=== PATIENT | female | born 1970 | race Caucasian/White ===

== ENCOUNTER 2018-02-11 06:04 | Emergency (ER) | payer SELFPAY ==
[2018-02-11 06:05] VITALS: BP 169/105; PULSE 71; RESP 16; TEMP 37.2; O2SAT 96; BMI 23.2
[2018-02-11 06:36] LABS: Bedside Glucose 314 mg/dL (70-110)
[2018-02-11] MEDS: 0.9% Normal Saline 1,000 ML 999 ML IV (06:44)
[2018-02-11 06:50] LABS: Absolute Lymphocyte Count 2.55 X10^3/ul (0.83-4.51); Absolute Neutrophil Count 4.5 X10^3/uL (2.0-7.7); Basophil# 0.11 X10^3/uL; Basophil% 1.3 % (0-1); Eosinophil# 0.28 X10^3/uL; Eosinophils% 3.4 % (0-5); Hematocrit 36.3 % (37-47); Hemoglobin 12.2 g/dl (12.0-15.0); Lymphocyte # 2.55 X10^3/ul (4.0); Lymphocyte % 30.7 % (19-41); Mean Corp Hgb Conc 33.6 g/gl (32-36); Mean Corpuscular Hgb 27.3 pg (27.0-32.0); Mean Corpuscular Volume 81.2 fL (81-99); Mean Platelet Vol. 10.9 fl (6.2-12.0); Monocyte% 10.8 % (0-10); Neutrophil # 4.45 X10^3/uL (2.7-7.7); Neutrophil % 53.7 % (47-70); Platelet Count 244 K/mm3 (150-450); RBC Distribution Width CV 12.3 % (11.6-14.6); RBC Distribution Width SD 35.6 fl (35.1-43.9); Red Blood Count 4.47 M/mm3 (4.2-5.4); White Blood Count 8.3 K/mm3 (4.4-11.0)
[2018-02-11 06:51] LABS: POSITIVE COUNT NO; POSITIVE DIFFERENTIAL NO; POSITIVE MORPHOLOGY NO
[2018-02-11 06:58] LABS: Anion Gap 8 (5-15); BUN 11 mg/dL (7-18); BUN/Creat Ratio 18.4 RATIO (10-20); Calcium,Total 8.3 mg/dL (8.5-10.1); Chloride 103 mmol/L (98-107); EST Glomerular Filtration Rate 114 mL/min (>60); Est Glom Filt Rate - Afr Amer 138 mL/min (>60); Estimated Creatinine Clearance 90.69 ml/min; Glucose 327 mg/dL (74-106); Potassium 3.6 mmol/L (3.5-5.1); Sodium Level 137 mmol/L (136-145)
--- NOTE | 2018-02-11 07:25 | ED.VISSUMM ---
- ER Visit Summary Date of Service: 02/11/18 Chief Complaint: Blurred vision, high blood sugar History of Present Illness: The patient is a 48 F who presents with high blood sugar. She notes that she has had blurred vision for about 2 weeks. She was seeing an eye doctor for possible glasses. However in the last couple of days she is also developed polydipsia polyuria and increased fatigue. She notes that she has been having vaginal irritation. She bought a glucometer and checked her blood sugar last night. At about midnight it read high. She went to sleep and checked it a few hours later and it read 540 so she presented here. She is not a known diabetic. Physical Examination: Afebrile vitals notable for blood pressure 169/105 otherwise unremarkable Moist mucous membranes Heart regular rate and rhythm Lungs clear Abdomen soft nontender Alert Test Results: Labs notable for glucose 327. Renal function normal. Emergency Department Course and Treatment: Patient was treated with IV fluids. Repeat blood sugar 269. I do not believe the patient requires hospitalization. We will start her on metformin. She does not have a primary care physician. Dr. Payne is next on the no doc PCP referral list. I did speak to Dr. payne who will see the patient in follow-up and was in agreement with the plan. Patient discharged. Treatment Plan: [] Disposition: Discharge Impression: New onset diabetes mellitus This note was generated with [employer] dictation software. It may contain incorrect words, spelling, and punctuation that were not noted in review of the chart prior to signing ED Disposition - Plan for ED Patient: Chief Complaint: Hyperglycemia Referrals: Care Physician,No Primary [Primary Care Provider] -
--- NOTE | 2018-02-11 07:28 | ED.DEP ---
ED Disposition - Plan for ED Patient: Chief Complaint: Hyperglycemia Instructions: ED Hyperglycemia Diabetic Prescriptions: Metformin HCl [Glucophage] 500 mg PO BID #60 tab Referrals: Care Physician,No Primary [Primary Care Provider] - Gracie Abraham DO [NON-STAFF] -
[2018-02-11 07:30] LABS: Bedside Glucose 269 mg/dL (70-110)
[2018-02-11 07:50] LABS: Hemoglobin A1c 9.9 % (4.2-6.3)
[2018-02-11 08:15] VITALS: BP 158/72; PULSE 83; RESP 16; O2SAT 98
--- OUTSIDE RECORDS SUMMARY | 2018-05-16 12:56 | XMS RPT_ITS ---
:1970 Author Organization [facility] Care Team Providers Name Role Phone Ella Serrato Attending Unavailable Ella Serrato Consulting Unavailable Primay Care Physicia, No Primary Care Unavailable Henry Le Attending Unavailable Purpose Purpose PROBLEMS PROBLEMS No Problem Records FoundPROCEDURES PROCEDURES No Procedure Records FoundVITAL SIGNS VITAL SIGNS No Vital Signs Records FoundRESULTS RESULTS DISCHARGE INSTRUCTION Observed: 02/11/2018 Status: F Source: [facility] 7:29 AM [facility] REPOSITORY [facility] Medical Records Department [address] [place] [address] Discharge Instruction 02/11/18 0728 MR#: [id number] Acct: [id number] Name: RYANN WAITE Rep #: [id number] : 1970 48 From: Henry Le MD PCP: Toshia Physician, No Primary Status: REG ER ED Disposition - Plan for ED Patient: Chief Complaint: Hyperglycemia Instructions: ED Hyperglycemia Diabetic Prescriptions: Metformin HCl [Glucophage] 500 mg PO BID #60 tab Referrals: Care Physician,No Primary [Primary Care Provider] - Fast,Gracie, DO [NON-STAFF] - What to do if you have Problems For any increased pain, shortness of breath, bleeding, nausea or vomiting, chest pain, or any unexpected problems, contact your Primary Care Provider. Call [facility] ([phone]) or report to the closest Emergency Room. Call 911 if necessary. 02/11/18 0729 <Electronically signed by Henry Le MD> Date Henry Le MD Cosigner Signature (If Indicated): Date CC: No Primary Care Physician EMERGENCY DEPARTMENT Observed: 02/11/2018 Status: F Source: [facility] SUMMARY 7:28 AM [facility] Medical Records Department [address] [place] [address] Emergency Department Summary 02/11/18 0725 MR#: [id number] Acct: [id number] Name: RYANN WAITE Rep #: [id number] : 1970 48 From: Henry Le MD PCP: Care Physician, No Primary Status: REG ER - ER Visit Summary Date of Service: 02/11/18 Chief Complaint: Blurred vision, high blood sugar History of Present Illness: The patient is a 48 F who presents with high blood sugar. She notes that she has had blurred vision for about 2 weeks. She was seeing an eye doctor for possible glasses. However in the last couple of days she is also developed polydipsia polyuria and increased fatigue. She notes that she has been having vaginal irritation. She bought a glucometer and checked her blood sugar last night. At about midnight it read high. She went to sleep and checked it a few hours later and it read 540 so she presented here. She is not a known diabetic. Physical Examination: Afebrile vitals notable for blood pressure 169/105 otherwise unremarkable Moist mucous membranes Heart regular rate and rhythm Lungs clear Abdomen soft nontender Alert Test Results: Labs notable for glucose 327. Renal function normal. Emergency Department Course and Treatment: Patient was treated with IV fluids. Repeat blood sugar 269. I do not believe the patient requires hospitalization. We will start her on metformin. She does not have a primary care physician. Dr. Payne is next on the [facility] PCP referral list. I did speak to Dr. payne who will see the patient in follow-up and was in agreement with the plan. Patient discharged. Treatment Plan: [] Disposition: Discharge Impression: New onset diabetes mellitus This note was generated with [employer] software. It may contain incorrect words, spelling, and punctuation that were not noted in review of the chart prior to signing ED Disposition - Plan for ED Patient: Chief Complaint: Hyperglycemia Referrals: Care Physician,No Primary [Primary Care Provider] - What to do if you have Problems For any increased pain, shortness of breath, bleeding, nausea or vomiting, chest pain, or any unexpected problems, contact your Primary Care Provider. Call [facility] ([phone]) or report to the closest Emergency Room. Call 911 if necessary. 02/11/18 0728 <Electronically signed by Henry Le MD> Date Henry Le MD Cosigner Signature (If Indicated): Date CC: No Primary Care Physician BEDSIDE GLUCOSE Collected: 02/11/2018 Status: F Source: [facility] 7:26 AM [facility] REPOSITORY TYPE CODE TESTS RESULT OUT OF REFERENCE UNITS RANGE LAB L501.080 70-110 mg/dL High BEDSIDE GLU 269 Result Comment: MANAGEMENT OF PATIENT CARE PER NURSING PROTOCOL Performed By: #### L501.080 #### [facility] Point of Care [address] [place] [address] [id number] CBC W/DIFF, AUTOMATED Collected: 02/11/2018 Status: F Source: [facility] 6:26 AM [facility] REPOS[facility] TYPE CODE TESTS RESULT OUT OF RANGE REFERENCE UNITS LAB L100.1000 4.4-11.0 K/mm3 Normal WBC 8.3 LAB L100.1200 4.2-5.4 M/mm3 Normal RBC 4.47 LAB L100.1300 12.0-15.0 g/dl Normal HGB 12.2 LAB L100.1400 37-47 % Low HCT 36.3 LAB L100.1500 81-99 fL Normal MCV 81.2 LAB L100.1600 27.0-32.0 pg Normal MCH 27.3 LAB L100.1700 32-36 g/gl Normal MCHC 33.6 LAB L100.1810 11.6-14.6 % Normal RDW CV 12.3 LAB L100.1820 35.1-43.9 fl Normal RDW SD 35.6 LAB L100.1900 150-450 K/mm3 Normal PLT 244 LAB L100.2000 6.2-12.0 fl Normal MPV 10.9 LAB L100.2100 47-70 % Normal NEUT% 53.7 LAB L100.2200 19-41 % Normal LY% 30.7 LAB L100.2300 0-10 % High MONO% 10.8 LAB L100.2400 0-5 % Normal EO% 3.4 LAB L100.2500 0-1 % High BASO% 1.3 LAB L100.2550 0.0-0.9 % Normal IM GRAN % 0.100 Result Comment: IG% - Immature Granulocytes (promyelocytes, myelocytes and metamyelocytes) > 1% indicates that a LEFT SHIFT is Present. LAB L100.2620 2.0-7.7 X10 3/uL Normal Absolute Neut 4.5 LAB L100.2720 0.83-4.51 X10 3/ul Normal Absolute Lymph 2.55 Performed By: #### L100.0100 #### [facility] [address] [place], [place], [address] BASIC METABOLIC Collected: 02/11/2018 Status: F Source: [facility] PROFILE ([facility]) 6:26 AM [facility] REPOS[facility] TYPE CODE TESTS RESULT OUT OF RANGE REFERENCE UNITS LAB L501.0100 74-106 mg/dL High GLU 327 Result Comment: Glucose result greater than or equal to 200 mg/dL suggests DIABETES MELLITUS per A.D.A. criteria. Please note revised GLUCOSE reference range effective 2017. LAB L501.1000 7-18 mg/dL Normal BUN 11 LAB L501.1100 0.55-1.02 mg/dL Normal CREAT,SERUM 0.60 Result Comment: The validity of the calculated GFR AND GFRAA in patients over 70 years has not been determined. Clinical correlation is essential. LAB L501.1110 >60 mL/min Normal EST GFR 114 Result Comment: Non- GFR Calc LAB L501.1115 >60 mL/min Normal EST GFR - AA 138 Result Comment: GFR Calc LAB L501.1255 ml/min Normal Estimated CRCL 90.69 LAB L501.1300 10-20 RATIO Normal BUN/CRE 18.4 LAB L501.2200 8.5-10 mg/dL Low .1 CA 8.3 LAB L501.5300 136-14 mmol/L Normal 5 NA 137 LAB L501.5600 3.5-5. mmol/L Normal 1 K 3.6 LAB L501.5900 98-107 mmol/L Normal CL 103 LAB L501.6100 21.0-3 mmol/L Normal 2.0 CO2 26.0 LAB L501.6200 5-15 Normal GAP 8 Performed By: #### L500.2500 #### [facility] [address] [place], [address] HEMOGLOBIN A1C Collected: 02/11/2018 Status: F Source: [facility] 6:26 AM [facility] REPOS[facility] TYPE CODE TESTS RESULT OUT OF RANGE REFERENCE UNITS LAB L501.9985 4.2-6.3 % High HGB A1C 9.9 Performed By: #### L501.9985 #### [facility] [address] [place], [address] BEDSIDE GLUCOSE Collected: 02/11/2018 Status: F Source: [facility] 6:20 AM [facility] REPOS[facility] TYPE CODE TESTS RESULT OUT OF REFERENCE UNITS RANGE LAB L501.080 70-110 mg/dL High BEDSIDE GLU 314 Result Comment: MANAGEMENT OF PATIENT CARE PER NURSING PROTOCOL Performed By: #### L501.080 #### [facility] Point of Care [address] [place] [address] ALLERGIES ALLERGIES DATE TYPE / CODE NAME / CODE REACTION SEVERITY SOURCE 02/11/2018 Drug adhesive Other Unknown [facility] Allergy/416 tape/[id number] [facility] 404637(SNOM (RXNORM) Repository ED CT) ENCOUNTERS ENCOUNTERS ADMIT/DISCHARGE ACCOUNT ADMITTING ENCOUNTER LOCATION SOURCE NUMBER CLASS 03/13/2018 [id number] Ambulatory Building:[facility] [place] Practices Repository 02/11/2018/ [id number] Emergency [facility] [address] [facility] ing:ED Repository FUNCTIONAL STATUS FUNCTIONAL STATUS No Functional Status Records FoundEQUIPMENT EQUIPMENT No Equipment Records FoundPAYERS PAYERS ENCOUNTER GUARANTOR PAYER SUBSCRIBER SOURCE 02/11/2018 RYANN Nidia Primary NOT GIVENUNK Arlene [id number] Insurance:SELF PAY Community [address] [place] [address] [id number]: [phone] Number: Effective Repository [phone] () Date:2018-02-11 SOCIAL HISTORY SOCIAL HISTORY No Social History Records FoundFAMILY HISTORY FAMILY HISTORY No Family History Records FoundADVANCE DIRECTIVES ADVANCE DIRECTIVES No Advanced Directives Records FoundINFORMATION SOURCE INFORMATION SOURCE DATE CREATED AUTHOR AUTHOR'S ORGANIZATION 03/21/2018 [facility]
== END 2018-02-11 08:17 | disposition home or self-care (01) ==
LOC: ED 06:35
PROVIDERS: Emergency Provider Emergency Medicine
DX: E11.9 Type 2 diabetes mellitus without complications (principal); N89.8 Other specified noninflammatory disorders of vagina
CPT/HCPCS: 80048; 82962; 83036; 85025; 96360; 99284; J7030; A4216

== ENCOUNTER → 2018-06-12 12:46 | Outpatient (CLI) | payer OTHER, SELFPAY ==
--- NOTE | 2018-06-12 12:55 | CT_ITS ---
STUDY: CT ABDOMEN AND PELVIS WITH CONTRAST REASON FOR EXAM: Female, 48 years old. RLQ PAIN. RADIATION DOSAGE (If Supplied By Facility): CTDIvol = ( 10.58 ) mGy, DLP = ( 430.56 ) mGycm TECHNIQUE: Transaxial images were obtained from the dome of the diaphragm to the symphysis pubis with oral contrast. 100 IV/Oral Isovue 300 was administered. Sagittal and coronal images were reconstructed. Individualized dose optimization techniques were used for this CT. COMPARISON: None. FINDINGS: The visualized lung bases are unremarkable. The visualized portions of the heart are within normal limits. There is decreased attenuation of the liver consistent with steatosis. Normal gallbladder and extrahepatic biliary system. Normal spleen. Normal pancreas. Normal bilateral adrenal glands. Normal right kidney. Normal left kidney. Normal visualized stomach. Normal small intestine. There are multiple colonic diverticula consistent with diverticulosis. The appendix is visualized and appears normal. Normal abdominal aorta. Normal inferior vena cava. Normal retroperitoneum. Normal urinary bladder. The uterus is heterogeneous and demonstrate the presence of peripheral hypodensities. There is a 3.8 cm left pelvic cyst Normal abdominal wall. Normal osseous structures. CT/Abdomen/Pelvis WITH Contrast IMPRESSION: The appendix is unremarkable. Heterogeneous uterus. 3.8 cm left adnexal cyst. Further evaluation with sonography can be obtained. Diverticulosis. Mild liver steatosis. Electronically Signed: Gomez Goodwin MD at 15:18 EDT Tel , Service support ,
[2018-06-12 13:10] LABS: Absolute Lymphocyte Count 2.91 X10^3/ul (0.83-4.51); Absolute Neutrophil Count 8.5 X10^3/uL (2.0-7.7); Basophil# 0.08 X10^3/uL; Basophil% 0.6 % (0-1); Eosinophil# 0.25 X10^3/uL; Hematocrit 35.2 % (37-47); Hemoglobin 11.4 g/dl (12.0-15.0); Lymphocyte # 2.91 X10^3/ul (4.0); Lymphocyte % 22.9 % (19-41); Mean Corp Hgb Conc 32.4 g/gl (32-36); Mean Corpuscular Hgb 26.3 pg (27.0-32.0); Mean Corpuscular Volume 81.1 fL (81-99); Mean Platelet Vol. 10.4 fl (6.2-12.0); Monocyte# 0.97 X10^3/uL; Monocyte% 7.6 % (0-10); Neutrophil # 8.51 X10^3/uL (2.7-7.7); Neutrophil % 66.8 % (47-70); POSITIVE COUNT NO; POSITIVE DIFFERENTIAL NO; POSITIVE MORPHOLOGY NO; Platelet Count 320 K/mm3 (150-450); RBC Distribution Width CV 12.8 % (11.6-14.6); RBC Distribution Width SD 37.8 fl (35.1-43.9); Red Blood Count 4.34 M/mm3 (4.2-5.4); White Blood Count 12.7 K/mm3 (4.4-11.0)
[2018-06-12 13:26] LABS: ALB/GLOB Ratio 1.2 RATIO (0.9-2.4); AST(SGOT) 9 U/L (15-37); Alanine Aminotransfer ALT/SGPT 14 U/L (13-56); Alkaline Phosphatase 73 U/L (45-117); Anion Gap 4 (5-15); BUN 9 mg/dL (7-18); BUN/Creat Ratio 16.1 RATIO (10-20); Calcium,Total 8.5 mg/dL (8.5-10.1); Chloride 104 mmol/L (98-107); Creatinine, Serum 0.56 mg/dL (0.55-1.02); EST Glomerular Filtration Rate 123 mL/min (>60); Est Glom Filt Rate - Afr Amer 149 mL/min (>60); Globulin 3.2 g/dL (2.2-4.2); Glucose 188 mg/dL (74-106); Potassium 4.6 mmol/L (3.5-5.1); Protein, Total 7.2 g/dL (6.4-8.2); Sodium Level 136 mmol/L (136-145)
== END ==
PROVIDERS: Family Provider Nurse Practitioner; PCP Nurse Practitioner; Referring Provider Nurse Practitioner; Visit Provider Nurse Practitioner
DX: R10.9 Unspecified abdominal pain (principal)
CPT/HCPCS: 74177; 80053; 85025; Q9967

== ENCOUNTER → 2018-06-13 12:29 | Outpatient (CLI) | payer OTHER, SELFPAY ==
[2018-06-13 13:21] LABS: Absolute Lymphocyte Count 2.19 X10^3/ul (0.83-4.51); Absolute Neutrophil Count 6.9 X10^3/uL (2.0-7.7); Basophil# 0.08 X10^3/uL; Basophil% 0.8 % (0-1); Eosinophil# 0.18 X10^3/uL; Eosinophils% 1.7 % (0-5); Hematocrit 37.2 % (37-47); Hemoglobin 12.1 g/dl (12.0-15.0); Lymphocyte # 2.19 X10^3/ul (4.0); Lymphocyte % 21.1 % (19-41); Mean Corp Hgb Conc 32.5 g/gl (32-36); Mean Corpuscular Hgb 26.6 pg (27.0-32.0); Mean Corpuscular Volume 81.8 fL (81-99); Mean Platelet Vol. 10.4 fl (6.2-12.0); Monocyte% 9.6 % (0-10); Neutrophil % 66.6 % (47-70); Platelet Count 342 K/mm3 (150-450); RBC Distribution Width SD 38.8 fl (35.1-43.9); Red Blood Count 4.55 M/mm3 (4.2-5.4); White Blood Count 10.4 K/mm3 (4.4-11.0)
[2018-06-13 13:23] LABS: POSITIVE COUNT NO; POSITIVE DIFFERENTIAL NO; POSITIVE MORPHOLOGY NO
[2018-06-13 13:38] LABS: Vitamin B12 489 pg/mL (211-911)
[2018-06-13 13:43] LABS: Ferritin 9 ng/mL (8-252); Iron 49 ug/dL (50-170)
--- NOTE | 2018-06-13 18:26 | US_ITS ---
STUDY: ULTRASOUND OF THE FEMALE PELVIS - COMPLETE REASON FOR EXAM: Female, 48 years old. Right lower quadrant abdominal pain. LMP: May 28, 2018 TECHNIQUE: Transabdominal and Transvaginal. Transvaginal imaging is performed for improved visualization of the endometrium and adnexal regions. TECHNICAL QUALITY: Adequate. COMPARISON: CT of the abdomen and pelvis dated June 12, 2018. FINDINGS: The uterus is anteverted and is in a midline position. The uterus measures 10.5 x 4.2 x 4.9 cm. There appear to be multiple nabothian cysts within the cervix. The endometrium measures 14.8 mm in thickness, and is hyperechoic. There is no demonstrated endometrial mass. There are multiple myometrial masses. One myometrial mass in the posterior uterine myometrium measures approximately 11.2 x 8.3 x 9.9 mm. There is a second hyperechoic nodule within the uterus measuring 8.7 x 6.9 x 7.7 mm. I.U.D. - The patient does not have an I.U.D. The right ovary is visualized. The right ovary measures 2.5 x 3.3 x 1.5 cm. There is a dominant follicular cyst measuring 2.4 x 1.2 x 2.0 cm There is no visualized right adnexal mass or complex lesion. There is normal arterial and normal venous vascularity. The left ovary is visualized. The left ovary measures 3.8 x 4.2 x 3.4 cm. There is a large minimally complex cyst arising from the left ovary measuring 3.3 x 3.1 x 3 cm. There is no visualized left adnexal mass or complex lesion. There is normal arterial and normal venous vascularity. There is minimal fluid in the cul-de-sac. The director global intelligence notices what probably represents stool within the sigmoid colon. The pre void volume of the bladder was 367 ml. Polycystic ovary disease: No. US/Pelvic (Non ) IMPRESSION: 1. Multiple small uterine nodules as described. 2. Bilateral ovarian cysts. 3. Abnormal endometrial thickening. This may be the result of endometrial hyperplasia. Electronically Signed: Deysi Avalos MD at 20:02 EDT , Service support ,
--- NOTE | 2018-06-13 18:38 | US_ITS ---
STUDY: ULTRASOUND OF THE FEMALE PELVIS - COMPLETE REASON FOR EXAM: Female, 48 years old. Right lower quadrant abdominal pain. LMP: May 28, 2018 TECHNIQUE: Transabdominal and Transvaginal. Transvaginal imaging is performed for improved visualization of the endometrium and adnexal regions. TECHNICAL QUALITY: Adequate. COMPARISON: CT of the abdomen and pelvis dated June 12, 2018. FINDINGS: The uterus is anteverted and is in a midline position. The uterus measures 10.5 x 4.2 x 4.9 cm. There appear to be multiple nabothian cysts within the cervix. The endometrium measures 14.8 mm in thickness, and is hyperechoic. There is no demonstrated endometrial mass. There are multiple myometrial masses. One myometrial mass in the posterior uterine myometrium measures approximately 11.2 x 8.3 x 9.9 mm. There is a second hyperechoic nodule within the uterus measuring 8.7 x 6.9 x 7.7 mm. I.U.D. - The patient does not have an I.U.D. The right ovary is visualized. The right ovary measures 2.5 x 3.3 x 1.5 cm. There is a dominant follicular cyst measuring 2.4 x 1.2 x 2.0 cm There is no visualized right adnexal mass or complex lesion. There is normal arterial and normal venous vascularity. The left ovary is visualized. The left ovary measures 3.8 x 4.2 x 3.4 cm. There is a large minimally complex cyst arising from the left ovary measuring 3.3 x 3.1 x 3 cm. There is no visualized left adnexal mass or complex lesion. There is normal arterial and normal venous vascularity. There is minimal fluid in the cul-de-sac. The financial solutions advisor notices what probably represents stool within the sigmoid colon. The pre void volume of the bladder was 367 ml. Polycystic ovary disease: No. US/Transvaginal Non- IMPRESSION: 1. Multiple small uterine nodules as described. 2. Bilateral ovarian cysts. 3. Abnormal endometrial thickening. This may be the result of endometrial hyperplasia. Electronically Signed: Deysi Avalos MD at 20:02 EDT , Service support ,
== END ==
LOC: US 12:32
PROVIDERS: Family Provider Nurse Practitioner; PCP Nurse Practitioner; Referring Provider Nurse Practitioner; Visit Provider Nurse Practitioner
DX: R10.9 Unspecified abdominal pain (principal); D64.9 Anemia, unspecified; D72.829 Elevated white blood cell count, unspecified
CPT/HCPCS: 36415; 76830; 76856; 82607; 82728; 82746; 83540; 85025; 93976

== ENCOUNTER → 2020-09-11 16:05 | Outpatient (CLI) | payer OTHER, SELFPAY ==
[2020-09-11 17:30] LABS: Absolute Neutrophil Count 8.2 X10^3/uL (2.0-7.7); Basophil# 0.13 X10^3/uL; Basophil% 1.1 % (0-1); Eosinophil# 0.36 X10^3/uL; Hemoglobin 13.2 g/dL (12.0-15.0); Lymphocyte % 19.3 % (19-41); Mean Corpuscular Hgb 29.1 pg (27.0-32.0); Mean Corpuscular Volume 88.3 fL (81-99); Mean Platelet Vol. 10.3 fl (6.2-12.0); Monocyte# 0.92 X10^3/uL; Monocyte% 7.7 % (0-10); NRBC Flagged by Analyzer 0 % (0-5); Neutrophil # 8.17 X10^3/uL (2.7-7.7); Neutrophil % 68.5 % (47-70); Platelet Count 298 K/mm3 (150-450); RBC Distribution Width CV 13.9 % (11.6-14.6); Red Blood Count 4.53 M/mm3 (4.2-5.4); White Blood Count 11.9 K/mm3 (4.4-11.0)
[2020-09-11 17:58] LABS: ALB/GLOB Ratio 1.1 RATIO (0.9-2.4); AST(SGOT) 15 U/L (15-37); Alanine Aminotransfer ALT/SGPT 22 U/L (13-56); Alkaline Phosphatase 88 U/L (45-117); Anion Gap 6 (5-15); BUN 8 mg/dL (7-18); BUN/Creat Ratio 11.4 RATIO (10-20); Calcium,Total 8.9 mg/dL (8.5-10.1); Chloride 102 mmol/L (98-107); Cholesterol 255 mg/dL (200); EST Glomerular Filtration Rate 94 mL/min (>60); Est Glom Filt Rate - Afr Amer 113 mL/min (>60); Globulin 3.6 g/dL (2.2-4.2); Glucose 231 mg/dL (74-106); High Density Lipoprotein 56 mg/dL; Potassium 4.1 mmol/L (3.5-5.1); Protein, Total 7.6 g/dL (6.4-8.2); Sodium Level 136 mmol/L (136-145); T4 Free Direct 0.82 ng/dL (0.76-1.46); Triglycerides 144 mg/dL; Very Low Density Lipoprotein 29 mg/dL (5-40)
[2020-09-11 17:59] LABS: Hemoglobin A1c 9.6 % (3.8-5.6)
[2020-09-11 18:08] LABS: Vitamin B12 862 pg/mL (211-911); Vitamin D,25 Hydroxy 60.2 ng/mL
[2020-09-11 18:30] LABS: Creatinine, Urine (random) < 13.00 mg/dL (NO RANGE EST.); Microalbumin,Random Urine 5.1 mg/L (NO RANGE EST.)
[2020-09-16 12:08] LABS: Vitamin B1, Thiamine 231.3 nmol/L (66.5-200.0)
[2020-09-16 14:03] LABS: Anti-Thyroglobulin AB < 1.0 IU/mL (0.0-0.9); Thyroglobulin, Serum Qt. 11.3 ng/mL (1.5-38.5); Thyroid Peroxidase AB 24 IU/mL (0-34)
== END ==
PROVIDERS: PCP Nurse Practitioner; Visit Provider Family Medicine
DX: E11.9 Type 2 diabetes mellitus without complications (principal); E03.9 Hypothyroidism, unspecified; E53.9 Vitamin B deficiency, unspecified; E55.9 Vitamin D deficiency, unspecified
CPT/HCPCS: 36415; 80053; 80061; 82043; 82306; 82570; 82607; 83036; 84425; 84432; 84439; 84443; 85025; 86376; 86800

== ENCOUNTER → 2020-09-29 07:59 | Outpatient (CLI) | payer OTHER, SELFPAY ==
--- NOTE | 2020-09-29 08:09 | ECHOD_ITS ---
Reason For Study: MURMUR Procedure This was a 2D Doppler, Color Flow transthoracic echocardiogram. The exam was of adequate technical quality. Exam performed in department. Left Ventricle Normal LV size. Left ventricular systolic function is normal. The estimated ejection fraction is 65 %. No evidence for diastolic dysfunction. No regional wall motion abnormalities noted. Right Ventricle Normal RV size. Normal systolic function. Atria Normal left atrium. Normal right atrium. No doppler evidence for ASD. Mitral Valve There is no mitral annular calcification. Normal mitral valve. Trivial mitral valve insufficiency. Tricuspid Valve Normal tricuspid valve. Trivial tricuspid valve insufficiency. Right ventricular systolic pressure estimated to be 23 mmHg. Aortic Valve Trisinus/trileaflet aortic valve. Normal aortic valve. Pulmonic Valve The pulmonic valve is not well visualized. Trivial pulmonic valve insufficiency. Great Vessels Normal sized aortic root. Pericardium/Pleural No pericardial effusion. MMode/2D Measurements & Calculations LVIDd: 4.4 cm IVSd: 0.67 cm Ao root diam: 2.2 cm LVIDs: 3.0 cm LVPWd: 0.66 cm FS: 31.7 % LAV(MOD-bp): 30.1 ml LA A4 area: 11.6 cm2 LA dimension(2D): 2.4 cm LAV(MOD-bp) Indexed: 20.3 ml/m2 LAV(MOD-sp2): 27.1 ml LAV(MOD-sp4): 25.6 ml RA A4 area: 9.5 cm2 Time Measurements MV dec time: 0.25 sec Doppler Measurements & Calculations MV E max yunier: 75.8 cm/sec Lat Peak E' Yunier: 12.1 cm/sec Med Peak E' Yunier: 11.6 cm/sec MV A max yunier: 68.0 cm/sec E/E' lat: 6.3 E/E' med: 6.5 MV E/A: 1.1 Ao V2 max: 140.9 cm/sec LV V1 max: 93.9 cm/sec TR max yunier: 220.6 cm/sec Ao max P.9 mmHg LV V1 max P.5 mmHg TR max P.5 mmHg ECHO/Echo Complete Interpretation Summary Left ventricular systolic function is normal. The estimated ejection fraction is 65 %. Trivial mitral valve insufficiency. Trivial tricuspid valve insufficiency. Trivial pulmonic valve insufficiency. Right ventricular systolic pressure estimated to be 23 mmHg. No evidence for diastolic dysfunction. Ordering Physician: Mesfin Pantoja Referring Physician: Mesfin Pantoja Performed By: Sandra To, RDCS, RVT
== END ==
LOC: CVS 08:02
PROVIDERS: PCP Family Medicine; Referring Provider Family Medicine; Visit Provider Family Medicine
DX: R01.1 Cardiac murmur, unspecified (principal)
CPT/HCPCS: 93306

== ENCOUNTER → 2020-12-01 08:04 | Outpatient (CLI) | payer OTHER, SELFPAY ==
[2020-12-01 09:53] LABS: Absolute Lymphocyte Count 2.52 X10^3/uL (0.83-4.51); Absolute Neutrophil Count 5.5 X10^3/uL (2.0-7.7); Basophil# 0.14 X10^3/uL; Basophil% 1.4 % (0-1); Eosinophil# 0.75 X10^3/uL; Eosinophils% 7.6 % (0-5); Hematocrit 43.4 % (37-47); Hemoglobin 14.2 g/dL (12.0-15.0); Lymphocyte # 2.52 X10^3/ul (0.83-4.51); Lymphocyte % 25.6 % (19-41); Mean Corp Hgb Conc 32.7 g/dL (32-36); Mean Corpuscular Hgb 29.1 pg (27.0-32.0); Mean Corpuscular Volume 88.9 fL (81-99); Mean Platelet Vol. 10.6 fl (6.2-12.0); Monocyte# 0.89 X10^3/uL; NRBC Flagged by Analyzer 0 % (0-5); Neutrophil # 5.53 X10^3/uL (2.7-7.7); Neutrophil % 56.1 % (47-70); Platelet Count 286 K/mm3 (150-450); RBC Distribution Width CV 13.4 % (11.6-14.6); RBC Distribution Width SD 43.8 fl (35.1-43.9); Red Blood Count 4.88 M/mm3 (4.2-5.4); White Blood Count 9.9 K/mm3 (4.4-11.0)
[2020-12-01 10:10] LABS: Hemoglobin A1c 10.8 % (3.8-5.6)
[2020-12-01 10:22] LABS: ALB/GLOB Ratio 1.1 RATIO (0.9-2.4); AST(SGOT) 7 U/L (15-37); Alanine Aminotransfer ALT/SGPT 17 U/L (13-56); Albumin, Serum 3.7 g/dL (3.2-5.0); Alkaline Phosphatase 84 U/L (45-117); Anion Gap 9 (5-15); BUN 8 mg/dL (7-18); BUN/Creat Ratio 11.9 RATIO (10-20); Chloride 100 mmol/L (98-107); Cholesterol 200 mg/dL (200); Creatinine, Serum 0.67 mg/dL (0.55-1.02); EST Glomerular Filtration Rate 98 mL/min (>60); Est Glom Filt Rate - Afr Amer 119 mL/min (>60); Globulin 3.5 g/dL (2.2-4.2); Glucose 244 mg/dL (74-106); High Density Lipoprotein 58 mg/dL; Protein, Total 7.2 g/dL (6.4-8.2); Sodium Level 137 mmol/L (136-145); T4 Free Direct 1.03 ng/dL (0.76-1.46); Thyroid Stim Hormone (TSH) 2.96 uIU/mL (0.358-3.74); Triglycerides 62 mg/dL; Very Low Density Lipoprotein 12 mg/dL (5-40)
== END ==
LOC: MFPLAB 08:04
PROVIDERS: PCP Family Medicine; Referring Provider Family Medicine; Visit Provider Family Medicine
DX: E78.5 Hyperlipidemia, unspecified (principal); E11.9 Type 2 diabetes mellitus without complications; E03.9 Hypothyroidism, unspecified
CPT/HCPCS: 36415; 80053; 80061; 83036; 84439; 84443; 85025

== ENCOUNTER → 2023-11-30 | Outpatient (CLI) | payer OTHER, SELFPAY ==
[2023-11-30 12:24] LABS: Absolute Lymphocyte Count 2.08 X10^3/uL (0.83-4.51); Absolute Neutrophil Count 5.1 X10^3/uL (2.0-7.7); Basophil# 0.11 X10^3/uL; Basophil% 1.3 % (0-1); Eosinophil# 0.14 X10^3/uL; Eosinophils% 1.7 % (0-5); Hematocrit 40.5 % (37-47); Hemoglobin 13.1 g/dL (12.0-15.0); Lymphocyte # 2.08 X10^3/ul (0.83-4.51); Lymphocyte % 25.2 % (19-41); Mean Corp Hgb Conc 32.3 g/dL (32-36); Mean Corpuscular Hgb 27.2 pg (27.0-32.0); Mean Platelet Vol. 9.6 fl (6.2-12.0); Monocyte# 0.77 X10^3/uL; Monocyte% 9.3 % (0-10); NRBC Flagged by Analyzer 0 % (0-5); Neutrophil # 5.14 X10^3/uL (2.7-7.7); Neutrophil % 62.1 % (47-70); Platelet Count 299 K/mm3 (150-450); RBC Distribution Width SD 39.7 fl (35.1-43.9); Red Blood Count 4.82 M/mm3 (4.2-5.4); White Blood Count 8.3 K/mm3 (4.4-11.0)
[2023-11-30 12:42] LABS: Vitamin B12 632 pg/mL (211-911); Vitamin D,25 Hydroxy 64.1 ng/mL
[2023-11-30 12:47] LABS: ALB/GLOB Ratio 0.9 RATIO (0.9-2.4); AST(SGOT) 14 U/L (15-37); Alanine Aminotransfer ALT/SGPT 16 U/L (13-56); Albumin, Serum 3.8 g/dL (3.2-5.0); Alkaline Phosphatase 84 U/L (45-117); Anion Gap 6 (5-15); BUN 11 mg/dL (7-18); BUN/Creat Ratio 16.1 RATIO (10-20); Calcium,Total 9.8 mg/dL (8.5-10.1); Chloride 104 mmol/L (98-107); Cholesterol 276 mg/dL (200); Creatinine, Serum 0.68 mg/dL (0.55-1.02); EST Glomerular Filtration Rate 95 mL/min (>60); Est Glom Filt Rate - Afr Amer 115 mL/min (>60); Globulin 4.1 g/dL (2.2-4.2); Glucose 114 mg/dL (74-106); High Density Lipoprotein 71 mg/dL; Potassium 4.6 mmol/L (3.5-5.1); Protein, Total 7.9 g/dL (6.4-8.2); Sodium Level 136 mmol/L (136-145); Triglycerides 91 mg/dL; Very Low Density Lipoprotein 18 mg/dL (5-40)
[2023-11-30 13:33] LABS: Microalbumin,Random Urine 14.3 mg/L (NO RANGE EST.)
[2023-11-30 14:02] LABS: Hemoglobin A1c 7.2 % (3.8-5.6)
== END | disposition home or self-care (01) ==
LOC: VSLAB 08:54
PROVIDERS: PCP Nurse Practitioner Family; Visit Provider Nurse Practitioner Family
DX: E10.9 Type 1 diabetes mellitus without complications (principal); E03.9 Hypothyroidism, unspecified; E56.9 Vitamin deficiency, unspecified
CPT/HCPCS: 36415; 80053; 80061; 82043; 82306; 82607; 83036; 84443; 85025